=== PATIENT | female | born 1990 | race Two or more races ===

== ENCOUNTER 2022-02-14 10:20 | Emergency (ER) | payer OTHER ==
[~2022-02-14] VITALS: Ht 167.6 cm; Wt 81.6 kg
[2022-02-14] MEDS ORDERED: ACETAMINOPHEN500 MG PO (10:48)
[2022-02-14] MEDS ORDERED: IBUPROFEN200 MG PO (10:48)
== END 2022-02-14 11:07 | disposition home or self-care (01) ==
LOC: FSED 10:42
DX: M54.2 Cervicalgia (principal); M54.50 Low back pain, unspecified; M25.512 Pain in left shoulder; M25.511 Pain in right shoulder; V43.52XA Car driver injured in collision with other type car in traffic accident, initial encounter; Y92.488 Other paved roadways as the place of occurrence of the external cause
CPT/HCPCS: 99282

== ENCOUNTER 2022-07-08 09:12 | Emergency (ER) | payer SELFPAY ==
[~2022-07-08] VITALS: Ht 167.6 cm; Wt 83.5 kg
[~2022-07-08 09:12] MED LIST: ACETAMINOPHEN500 MG PO; IBUPROFEN200 MG PO
[2022-07-08] MEDS ORDERED: CYCLOBENZAPRINE10 MG PO (09:56)
[2022-07-08] MEDS ORDERED: ONDANSETRON ODT4 MG PO (09:59)
[2022-07-08] MEDS ORDERED: FAMOTIDINE40 MG PO (10:00)
[2022-07-08] MEDS ORDERED: NAPROSYN500 MG PO (10:01)
== END 2022-07-08 10:23 | disposition home or self-care (01) ==
LOC: FSED 09:23
DX: R10.32 Left lower quadrant pain (principal); K29.70 Gastritis, unspecified, without bleeding; M54.50 Low back pain, unspecified; M62.830 Muscle spasm of back; D57.3 Sickle-cell trait
CPT/HCPCS: 81003; 81025; 99282

== ENCOUNTER 2024-10-15 17:25 | Emergency (ER) | payer SELFPAY ==
[~2024-10-15] VITALS: Ht 167.6 cm; Wt 75.0 kg
[~2024-10-15 17:25] MED LIST changes: +CYCLOBENZAPRINE10 MG PO; +FAMOTIDINE40 MG PO; +NAPROSYN500 MG PO; +ONDANSETRON ODT4 MG PO
[2024-10-15 17:36] VITALS: PULSE 77; RESP 16; TEMP 98.2; O2SAT 100
[2024-10-15] MEDS ORDERED: ACYCLOVIR200 MG PO (17:52)
== END 2024-10-15 17:56 | disposition home or self-care (01) ==
LOC: FSED 17:36
DX: B00.1 Herpesviral vesicular dermatitis (principal); D57.3 Sickle-cell trait
CPT/HCPCS: 99283